=== PATIENT | female | born 2000 | race Caucasian/White ===

== ENCOUNTER 2022-09-11 08:52 | Day surgery (SDC) | payer OTHER ==
[2022-09-06 08:34] VITALS: BP 108/74
[~2022-09-11] VITALS: Ht 160 cm; Wt 63.6 kg
--- NOTE | ~2022-09-11 | OR ---
[facility] [address] [facility] [place], [place] [address] [address] DATE OF OPERATION: 09/11/2022 SURGEON: Toby Romo MD PREOPERATIVE DIAGNOSIS: Bilateral epistaxis. POSTOPERATIVE DIAGNOSIS: Bilateral epistaxis. PROCEDURE: Exam of the nose under anesthesia, cautery, bilateral Kiesselbach's plexus. ANESTHESIA: General LMA, BULMARO, Giorgio. HISTORY: Jairon is a 22-year-old lady with a long history of epistaxis. She has had her nose cauterized several times in the past. She has been noted to have prominent blood vessels on both sides of the septum and in the office and she is being taken to the operating for the above-mentioned procedures. OPERATIVE PROCEDURE AND FINDINGS: After informed consent, the patient was taken to the operating room, placed in supine position where LMA anesthesia was induced. The patient and procedure were verified. The patient received preoperative intranasal oxymetazoline. Headlight speculum exam of the nasal cavity showed prominent blood vessels both capsule box plexus, inferior septum near the anterior portion was very thin, ulcerated. Electrocautery was used on the upper part of the septum bilaterally, avoiding the inferior portion. All blood vessels identified, visually were cauterized. Hemostasis was obtained. Neosporin ointment was applied. The patient was awakened, extubated, transported to recovery room in good condition. No complications. BLOOD LOSS: Minimal. SPECIMEN: None. DRAINS: PATIENT NAME: JAIRON FARRELL OPERATIVE REPORT DATE OF : 01 REPORT #: [id number] PHYSICIAN: TOBY ROMO MD PCP: MARCO BRADLEY MD REPORT IS CONFIDENTIAL AND NOT TO BE RELEASED WITHOUT AUTHORIZATION [address] [place], [place] [address] [facility]. PACKING: None. Toby Romo MD /BOWEN /[id number] Copies: ~ PATIENT NAME: JAIRON FARRELL OPERATIVE REPORT DATE OF : 01 REPORT #: [id number] PHYSICIAN: TOBY ROMO MD PCP: MARCO BRADLEY MD REPORT IS CONFIDENTIAL AND NOT TO BE RELEASED WITHOUT AUTHORIZATION
[~2022-09-11 08:52] MED LIST: ALPRAZOLAM0.25 MG PO; FLUOXETINE HCL10 MG PO; FLUOXETINE HCL20 MG PO; IMITREX100 MG PO; LITHIUM CARBON300 M1 PO; OMEGA 3 1,0001 EACH PO; PROCHLORPERAZIN10 MG PO; REMERON15 MG PO; RIBOFLAVIN400 MG PO
[2022-09-11 09:22] VITALS: BP 106/77
--- NOTE | 2022-09-11 11:14 | NUR ---
09/11/22 1114 Sheets,V[address] 1104 PT ARRIVED TO PACU WITH ORAL AIRWAY IN PLACE, 10L O2 IN PLACE. PT NONAROUSABLE TO PAINFUL STIMULI, JAW THURST USED OFF AND ON. 1109 O2 DECREASED TO 6L VIA MASK, JAW THRUST NO LONGER NEEDED. RESP EVEN AND UNLABORED.
[2022-09-11 12:13] VITALS: BP 122/84
--- NOTE | 2022-09-11 12:17 | NUR ---
1204: PT ARRIVES TO UNIT VIA STRETCHER FROM PACU. DROWSY ON ARRIVAL. NODS TO QUESTIONS BUT DOES NOT HOLD CONVERSATION AT THIS TIME. VSS, RESP EVEN AND UNLABORED. DENIES PAIN AND NAUSEA. IV CONVERTED TO SL. ICE WATER AND PUDDING AT THE BEDSIDE. CALL LIGHT WITHIN REACH
[2022-09-11 13:42] VITALS: BP 103/64
--- NOTE | 2022-09-11 14:46 | NUR ---
[id number]: VS DEFERRED AT THIS TIME, PT RESTING WITH EYES CLOSED JACE UNLABORED RESPIRATIONS. CONT PULSE OXIMETER IN PLACE, SATS GREATER THAN 94% ON RA. PT HAS LOW HR AT BASELINE, CONT TO RUN IN MID TO HIGH 40'S. [id number]: PT AROUSES WITH VERBAL STIMULATION FOR VS AND ASSESSMENT. PT DENIES NAUSEA OR PAIN WHEN ASKED AND QUICKLY FALLS BACK TO SLEEP. CALL LIGHT WITHIN REACH.
[2022-09-11 14:50] VITALS: BP 93/51
--- NOTE | 2022-09-11 16:07 | NUR ---
1500: PT DRESSED AND READY TO DC. PT AMBULATES TO BATHROOM AND VOIDS QS WITH NO PROBLEMS. DC INSTRUCTIONS PRESENTED VERBALLY AND WRITTEN TO PT. PT CALLS FATHER FOR SAFE RIDE HOME, DC FROM DS RM 4 VIA WC TO FATHER AT HOSPITAL ENTRANCE TO HOME.
== END 2022-09-11 15:15 | disposition home or self-care (01) ==
LOC: DS 08:52 → OPS 08:52 → DS 10:30 → OPS 15:15
PROVIDERS: ATTEND Otolaryngology
PROC: 093K7ZZ Control Bleeding in Nasal Mucosa and Soft Tissue, Via Natural or Artificial Opening (ICD-10-PCS; principal; 2022-09-11 10:30)
DX: R04.0 Epistaxis (principal)
CPT/HCPCS: J0461; J1100; J1885; J2250; J2405; J2704; J2765; J3010; J7121